=== PATIENT | female | born 1970 | race Caucasian/White ===

== ENCOUNTER 2019-09-01 18:39 | Emergency (ER) | payer OTHER ==
[2019-09-01] MEDS ORDERED: Morphine 2 MG/ML Syringe IVPUSH ONE (18:56)
--- NOTE | 2019-09-01 19:15 | EDM.PDOC ---
<Pauline Allison - Last Filed: 09/01/19 21:27> ED HPI GENERAL MEDICAL PROBLEM - General Chief Complaint: Cardiovascular Problem Stated Complaint: AMBULANCE Time Seen by Provider: 09/01/19 19:00 Source of Information: Reports: Patient - History of Present Illness INITIAL COMMENTS - FREE TEXT/NARRATIVE: Chery is a 49 year old female with PMH of diverticulosis who is brought to the ED by EMS due to chest pain at 1800. She was helping in the kitchen at [employer] and cleaning up when she suddenly felt pain in the center of her chest, felt SOB , lightheaded, and sweaty. She describes the pain as pressure in quality, and it is nonradiating. There is no left arm or jaw pain. Denies nausea, or vomiting. She reports that she burped when the chest pain happened, and she thought it was acid reflux. She does not take any daily medications, and is in a good state of health overall. She has never experienced anything like this in the past. Denies any new stressors in life, or changes in lifestyle. 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: Reports: Aspirin, IV/IO, Nitroglycerin Middle Sternum Pain Score (Numeric/FACES): 8 - Related Data Allergies Allergy/AdvReac Type Severity Reaction Status Date / Time nickel Allergy Itching Verified 09/01/19 18:59 Sulfa (Sulfonamide Allergy Rash Verified 09/01/19 18:59 Antibiotics) Home Meds: Home Meds Acyclovir [Zovirax 5% Crm] 1 applic TOP ASDIRECTED 06/25/18 [History] Ascorbic Acid [Vitamin C] 1,000 mg PO DAILY 06/25/18 [History] Calcium Carbonate/Vitamin D3 [Calcium 500 + Vit D 400] 1 tab PO BID 06/25/18 [ History] Cholecalciferol (Vitamin D3) [Vitamin D3] 1,000 units PO DAILY 06/25/18 [History ] Multivitamin with Minerals [Multiple Vitamin] 1 tab PO DAILY 06/25/18 [History] cycloSPORINE [Restasis] 1 each EYEBOTH ASDIRECTED 06/25/18 [History] Past Medical History HEENT History: Reports: None Cardiovascular History: Reports: High Cholesterol Respiratory History: Reports: None Gastrointestinal History: Reports: Diverticulosis Genitourinary History: Reports: None [employer]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: Musculoskeletal History: Reports: Back Pain, Chronic Neurological History: Reports: Migraines Psychiatric History: Reports: None Endocrine/Metabolic History: Reports: None Hematologic History: Reports: None Immunologic History: Reports: None Oncologic (Cancer) History: Reports: None Dermatologic History: Reports: None - Infectious Disease History Infectious Disease History: Reports: Chicken Pox - Past Surgical History Head Surgeries/Procedures: Reports: None HEENT Surgical History: Reports: Tonsillectomy Cardiovascular Surgical History: Reports: None Respiratory Surgical History: Reports: None GI Surgical History: Reports: None Female Surgical History: Reports: Section, Tubal Ligation Neurological Surgical History: Reports: None Musculoskeletal Surgical History: Reports: None Social & Family History - Family History Family Medical History: Noncontributory - Tobacco Use Smoking Status *Q: Never Smoker - Caffeine Use Caffeine Use: Reports: Coffee Caffeine Use Comment: 64oz daily - Recreational Drug Use Recreational Drug Use: No ED ROS GENERAL - Review of Systems Constitutional: Reports: Diaphoresis HEENT: Reports: No Symptoms Respiratory: Reports: Shortness of Breath Cardiovascular: Reports: Chest Pain, Lightheadedness Endocrine: Reports: No Symptoms GI/Abdominal: Reports: No Symptoms : Reports: No Symptoms Musculoskeletal: Reports: No Symptoms Skin: Reports: No Symptoms Neurological: Reports: No Symptoms Psychiatric: Reports: No Symptoms Hematologic/Lymphatic: Reports: No Symptoms ED EXAM, GENERAL - Physical Exam Exam Limited By: No Limitations General Appearance: Alert, Mild Distress Head: Atraumatic, Normocephalic Neck: Normal Inspection, Supple Respiratory/Chest: Lungs Clear, Normal Breath Sounds, Chest Non-Tender Cardiovascular: Regular Rate, Rhythm, No Edema GI/Abdominal: Soft, Non-Tender (Female) Exam: Deferred Rectal (Female) Exam: Deferred Extremities: No Pedal Edema Neurological: Alert, Oriented Psychiatric: Normal Affect, Normal Mood Skin Exam: Warm, Dry, No Rash Course - Vital Signs Text/Narrative:: Patient care turned over to Sheela Cheema. Last Recorded V/S: Last Vital Signs Temp 36.4 C 09/01/19 23:02 Pulse 64 09/01/19 23:02 Resp 18 09/01/19 23:02 BP 110/79 09/01/19 23:02 Pulse Ox 96 09/01/19 23:02 - Orders/Labs/Meds Orders: Active Orders 24 hr Category Date Time Status EKG Documentation Completion [RC] URGENT Care 09/01/19 18:52 Ordered Chest 1V Frontal [CR] Urgent Exams 09/01/19 18:55 Ordered Heparin Sodium/0.45% NaCl [Heparin 25,000 Units in 1/2 Med 09/01/19 23:38 Ordered NS 500 ML] 25,000 units in 500 ml IV ONETIME Medication Orders Heparin Sodium/Sodium Chloride (Heparin 25,000 Units In 1/2 Ns 500 Ml) 25,000 units in 500 mls @ 17.962 mls/hr IV ONETIME ONE Stop: 09/03/19 03:28 Last Admin: 09/01/19 23:44 Dose: 12 units/kg/hr, 17.962 mls/hr Labs: Laboratory Tests 09/01/19 09/01/19 09/01/19 Range/Units 19:00 19:00 23:06 WBC 8.1 (5.0-10.0) 10^3/uL RBC 3.84 L (4.2-5.4) 10^6/uL Hgb 12.2 (12.0-16.0) g/dL Hct 36.8 L (37.0-47.0) % MCV 95.8 (80-100) fL MCH 31.8 (27.0-34.0) pg MCHC 33.2 (33.0-35.0) g/dL Plt Count 272 (150-450) 10^3/uL Neut % (Auto) 58.3 (42.2-75.2) % Lymph % (Auto) 33.1 (20.5-50.1) % [place] % (Auto) 6.4 (2-8) % Eos % (Auto) 2.0 (1.0-3.0) % Baso % (Auto) 0.2 (0.0-1.0) % Sodium 138 (135-145) mmol/L Potassium 3.7 (3.6-5.0) mmol/L Chloride 101 (101-111) mmol/L Carbon Dioxide 27.0 (21.0-31.0) mmol/L Anion Gap 13.7 BUN 13 (7-18) mg/dL Creatinine 0.9 (0.6-1.3) mg/dL Est Cr Clr Drug Dosing 53.12 mL/min Estimated GFR (MDRD) > 60 BUN/Creatinine Ratio 14.44 Glucose 146 H (74-105) mg/dL Calcium 8.8 (8.4-10.2) mg/dl Total Bilirubin 0.7 (0.2-1.0) mg/dL AST 24 (10-42) IU/L ALT 16 (10-60) IU/L Alkaline Phosphatase 49 (42-121) IU/L Troponin I < 0.02 0.28 H* (0.00-0.02) ng/ml Total Protein 6.9 (6.7-8.2) g/dl Albumin 4.0 (3.2-5.5) g/dl Globulin 2.9 Albumin/Globulin Ratio 1.38 Meds: Medications Generic Name Dose Route Start Last Admin Trade Name Freq PRN Reason Stop Dose Admin Heparin Sodium/Sodium Chloride 25,000 units in 500 mls @ 17.962 mls/hr 23:38 09/01/19 23:44 Heparin 25,000 Units In 1/2 Ns 500 Ml IV 09/03/19 03:28 12 units/kg/hr ONETIME ONE 17.962 mls/hr Administration 12 UNITS/KG/HR Discontinued Medications Generic Name Dose Route Start Last Admin Trade Name Freq PRN Reason Stop Dose Admin Al Hydroxide/Mg Hydroxide 30 ml 09/01/19 19:52 09/01/19 19:59 Gi Cocktail PO 09/01/19 19:53 30 ml ONETIME ONE Administration Heparin Sodium (Porcine) 4,000 units 09/01/19 23:38 09/01/19 23:43 Heparin Sodium IVPUSH 09/01/19 23:39 4,000 units .BOLUS ONE Administration Morphine Sulfate 2 mg 09/01/19 18:56 09/01/19 19:18 Morphine IVPUSH 09/01/19 18:57 2 mg ONETIME ONE Administration Departure - Departure Disposition: DC/Tfer to Acute Hospital Clinical Impression: NSTEMI (non-ST elevated myocardial infarction) Forms: Interfacility Transfer EMTALA Care Plan Goals: Discussed the patient's history, examination, lab, x-ray, EKG, treatments and repeat lab results with Dr. Campbell. Dr. Campbell accepted the patient for continued evaluation and management as an inpatient at [facility] in [place]. The patient will be transported by [facility]. - My Orders Last 24 Hours: My Active Orders 09/01/19 18:52 EKG Documentation Completion [RC] URGENT 09/01/19 18:55 Chest 1V Frontal [CR] Urgent 09/01/19 23:38 Heparin Sodium/0.45% NaCl [Heparin 25,000 Units in 1/2 NS 500 ML] 25,000 units in 500 ml IV ONETIME - Assessment/Plan Last 24 Hours: My Active Orders 09/01/19 18:52 EKG Documentation Completion [RC] URGENT 09/01/19 18:55 Chest 1V Frontal [CR] Urgent 09/01/19 23:38 Heparin Sodium/0.45% NaCl [Heparin 25,000 Units in 1/2 NS 500 ML] 25,000 units in 500 ml IV ONETIME Assessment:: Assessment & Plan: Chest pain ACS rule out - Received nitroglycerin and 325mg ASA en route - EKG in ED is unremarkable - Follow up on troponin x2, CBC, CMP yielded normal results. - Morphine 2mg for pain control - Nitroglycerin PRN - CXR in ED is unremarkable - HEART score 2: ricks of major advance cardiac event is 0.9-1.7% - GI cocktail provided relief. Will check a second troponin and if within normal limits, patient will be discharged with a PPI. <Teodoro Cheema - Last Filed: 09/01/19 23:54> ED ROS GENERAL - Review of Systems Review Of Systems: See Below ED EXAM, GENERAL - Physical Exam Exam: See Below Course - Re-Assessments/Exams Free Text/Narrative Re-Assessment/Exam: 09/01/19 20:47 I have examined the patient. I have discussed findings and treatment plan with the resident. I agree with the assessment and plan in the following residents note. Free Text/Narrative Re-Assessment/Exam: 09/01/19 23:51 Repeat troponin resulted in an elevated level (0.28). Departure - Departure Time of Disposition: 23:52 Reason for Transfer *Q: Other Condition: Poor
[2019-09-01 19:27] LABS: ANION GAP 13.7; CHLORIDE,CL 101 mmol/L (101-111); SODIUM,NA 138 mmol/L (135-145)
[2019-09-01] MEDS ORDERED: GI Cocktail Oral Solution 30 ML PO ONE (19:52)
[2019-09-01] MEDS ORDERED: Heparin Sodium 5,000 Units/ML Vial IVPUSH ONE (23:38)
[2019-09-01] MEDS ORDERED: Heparin Sodium/0.45% NaCl 25,000 UNITS/500 ML BAG IV ONE (23:38)
== END 2019-09-02 00:26 ==
LOC: DL.ED 18:39
DX: I21.4 Non-ST elevation (NSTEMI) myocardial infarction (principal); Z88.2 Allergy status to sulfonamides; Z91.048 Other nonmedicinal substance allergy status
CPT/HCPCS: 36415; 71045; 80053; 84484; 85025; 93005; 96365; 96375; 96376; 99285; A9270; J1644; J2270

== ENCOUNTER 2024-11-16 05:44 | Day surgery (SDC) | payer OTHER ==
[2024-11-16] MEDS ORDERED: Midazolam 1 MG/ML 2 ML SDV ONE (06:10)
[2024-11-16] MEDS ORDERED: fentaNYL 100 MCG/2 ML SDV ONE (06:10)
[2024-11-16] MEDS ORDERED: fentaNYL 100 MCG/2 ML SDV IV ONE (06:10)
[2024-11-16] MEDS ORDERED: Midazolam 1 MG/ML 2 ML SDV IV ONE (06:10)
[2024-11-16] MEDS: Dextrose 5%-0.45% NaCl 1,000 ML IV SCH (06:21)
[2024-11-16] MEDS: fentaNYL 100 MCG/2 ML SDV IV ONE ×2 (06:49→06:50)
[2024-11-16] MEDS: Midazolam 1 MG/ML 2 ML SDV IV ONE ×4 (06:50→07:01)
== END 2024-11-16 09:07 | disposition home or self-care (01) ==
LOC: DL.ENDO 05:44
PROVIDERS: ATTEND Internal Medicine Gastroenterology
DX: K63.5 Polyp of colon (principal); K57.30 Diverticulosis of large intestine without perforation or abscess without bleeding; E78.5 Hyperlipidemia, unspecified
CPT/HCPCS: 45385; J2250; J3010; J7799